=== PATIENT | female | born 1985 | race Caucasian/White ===

== ENCOUNTER 2016-04-11 19:48 | Emergency (ER) | payer OTHER ==
[2016-04-11 20:26] LABS: URINE BILIRUBIN NEGATIVE (NEGATIVE); URINE BLOOD NEGATIVE (NEGATIVE); URINE GLUCOSE (UA) 3+ (NEGATIVE); URINE LEUKOCYTE ESTERASE TRACE (NEGATIVE); URINE NITRITE NEGATIVE (NEGATIVE); URINE PROTEIN NEGATIVE (NEGATIVE); URINE UROBILINOGEN NORMAL (0-1 mg/dl)
[2016-04-11 20:27] LABS: HCG,QUALITATIVE URINE NEGATIVE
[2016-04-11 20:31] LABS: URINE APPEARANCE SL CLOUDY; URINE COLOR YELLOW
[2016-04-11] MEDS ORDERED: HYDROMORPHONE HCL 1 MG/ML SYRINGE ONE (20:46)
[2016-04-11] MEDS ORDERED: ONDANSETRON 4 MG/2ML 2 ML VIAL ONE (20:46)
[2016-04-11] MEDS ORDERED: LACTATED RINGERS 1,000 ML ONE ×2 (20:46→22:06)
[2016-04-11 20:58] LABS: URINE BACTERIA 2+; URINE RBC 0-2 /hpf; URINE WBC 0-2 /hpf
[2016-04-11 21:10] LABS: ABSOLUTE NEUTROPHIL COUNT 3.6 K/mm3 (1.8-7.7); BASO % 0.1 % (0.2-1.0); EOS # 0.4 (0.0-0.5); EOS % 4.8 % (0.9-2.9); HEMATOCRIT 38.6 % (37.0-47.0); HEMOGLOBIN 12.1 gm/l (12.0-16.0); IMM NEUT% 0.3 % (0-1); LYMPH # 3.2 (1.0-4.8); LYMPH % 42.8 % (15-45); MEAN CELL VOLUME 86.2 fl (81.0-99.0); MEAN CORPUSCULAR HGB CONC 31.3 g/dl (33.0-37.0); MEAN PLATELET VOLUME 9.6 fl (7.4-10.4); MONO # 0.4 (0.0-0.8); MONO % 4.9 % (4-12); NEUT % 47.1 % (43-75); PLATELET COUNT 241 K/mm3 (130-400); RED CELL DISTRIBUTION WIDTH 13.6 % (11.5-14.5)
[2016-04-11 21:29] LABS: ALB/GLOB RATIO 1.1 (>1.0); ALBUMIN 3.8 gm/dL (3.5-5.7); CALCIUM 8.7 mg/dL (8.6-10.3)
[2016-04-12] MEDS ORDERED: HYDROMORPHONE HCL 1 MG/ML SYRINGE ONE (00:40)
--- NOTE | 2016-04-12 07:55 | RAD ---
ABDOMEN FLAT AND UPRIGHT COMPARISON: Acute abdomen series 04/17/2014 HISTORY: Abdomen pain for 2 months that is getting worse over the last 2 days. FINDINGS: Views: Abdomen upright and supine. Lung bases: Normal. Free air: None Bowel gas pattern: Normal Organomegaly: None Soft tissue calcification: None Bones: Dextroscoliosis of the lumbar spine. Surgical clips: Right upper quadrant of the abdomen. IMPRESSION: No acute finding. Cholecystectomy.
--- NOTE | 2016-04-12 07:57 | US ---
ABDOMINAL-LIMITED COMPARISON: Abdomen 2 views and 2617 HISTORY: Right upper quadrant pain. Negative radiographs. Cholecystectomy. FINDINGS: Gall bladder: Removed. Common hepatic duct: 5.1 mm. Common bile duct: 7.3 mm. IMPRESSION: 1. Common bile duct is mildly dilated with no filling defect. This can be seen after cholecystectomy. Preliminary report by [facility] radiologist Luis Fernando Ramirez M.D. 04/12/2016 at 02:05
[2016-04-13 14:43] LABS: CHLAMYDIA BD Negative (Negative); N.GONORRHOEAE BD Negative (Negative); SOURCE Urine (())
== END 2016-04-12 02:39 | disposition home or self-care (01) ==
LOC: ED 19:48
DX: R10.9 Unspecified abdominal pain (principal); R11.2 Nausea with vomiting, unspecified; E10.9 Type 1 diabetes mellitus without complications; Z79.4 Long term (current) use of insulin; Z96.41 Presence of insulin pump (external) (internal)
CPT/HCPCS: 83690; 87491; 87591; 81025; 85025; 87086; 80053; 81001; 74020; 76705; 96375; 96376; 99284 ×2; 96374; 96361; J1170 ×2; J2405; J7120 ×2